=== PATIENT | male | born 1965 | race Caucasian/White ===

== ENCOUNTER 2018-08-05 00:44 | Inpatient (IN) | payer OTHER ==
[~2018-08-05] VITALS: Ht 180.3 cm; Wt 89.8 kg
[~2018-08-05 00:44] MED LIST: METH36TA PO
[2018-08-05] MEDS ORDERED: PHENAZOPYRIDINE 200 MG TABLET ONE (01:19)
[2018-08-05] MEDS ORDERED: IBUPROFEN 200 MG TABLET ONE (01:19)
[2018-08-05] MEDS ORDERED: PHENAZOPYRIDINE 200 MG TABLET PO ONE (01:30)
[2018-08-05] MEDS ORDERED: IBUPROFEN 200 MG TABLET PO ONE (01:30)
[2018-08-05 02:01] LABS: MEAN CORPUSCULAR HEMOGLOBIN 31.5 pg (27.5-34.5); MEAN CORPUSCULAR HGB CONC 34.1 g/dL (33.2-36.2); MEAN CORPUSCULAR VOLUME 92.4 fL (81-97); MEAN PLATELET VOLUME 8.8 fL (7.4-10.4); PLATELET COUNT 208 x10^3/uL (130-400); RED BLOOD COUNT 4.66 x10^6/uL (4.38-5.82); RED CELL DISTRIBUTION WIDTH 13.5 % (9.4-14.8)
[2018-08-05 02:14] LABS: ANION GAP 11 mmol/L (5-15); CALCIUM 8.8 mg/dL (8.5-10.1); CHLORIDE 101 mmol/L (98-107); CREATININE 1.39 mg/dL (0.7-1.3)
[2018-08-05 02:49] LABS: MICROSCOPIC AUTO
[2018-08-05 02:50] LABS: CULTURE INDICATED? YES
[2018-08-05 02:57] LABS: MD YES
[2018-08-05 03:00] LABS: <RBC MORPHOLOGY> NORMAL; BANDS%(MANUAL) 12 % (0-7); LYMPH#(MANUAL) 1.25 x10^3/uL (1-3.4); LYMPHS% (MANUAL) 5 % (22-44); MONOS% (MANUAL) 4 % (2-9); SEG#(MANUAL) 19.75 x10^3/uL (1.8-6.8); SEGS% (MANUAL) 79 % (42-75)
[2018-08-05] MEDS ORDERED: CEFTRIAXONE PMX 1GM/50ML 50 ML IV SCH (03:00)
[2018-08-05 03:01] LABS: <PLATELET ESTIMATE> ADEQUATE; <PLT MORPHOLOGY> NORMAL PLT MORPH
[2018-08-05] MEDS ORDERED: CEFTRIAXONE PMX 1GM/50ML 50 ML ONE (03:10)
[2018-08-05] MEDS ORDERED: OMNIPAQUE 350 MG/ML, 100ML BOTTLE ONE (03:29)
[2018-08-05] MEDS ORDERED: SODIUM CHLORIDE 0.9% 1,000ML IVBOLUS ONE (03:30)
[2018-08-05] MEDS ORDERED: CIPROFLOXACIN/PMX 400MG/200ML 200 ML IV ONE (05:00)
[2018-08-05] MEDS ORDERED: METRONIDAZOLE PMX 500MG/100ML 100 ML IV ONE (05:00)
[2018-08-05] MEDS ORDERED: METRONIDAZOLE PMX 500MG/100ML 100 ML ONE (05:04)
[2018-08-05] MEDS ORDERED: CIPROFLOXACIN/PMX 400MG/200ML 200 ML ONE (05:04)
[2018-08-05] MEDS ORDERED: LABETALOL 5MG/ML, 20ML IVPush PRN (05:30)
[2018-08-05] MEDS ORDERED: ONDANSETRON 2MG/ML, 2ML IVPush PRN (05:30)
[2018-08-05] MEDS ORDERED: ONDANSETRON ODT 4 MG PO PRN (05:30)
[2018-08-05] MEDS ORDERED: KETOROLAC 30 MG/1 ML IV PRN (05:30)
[2018-08-05] MEDS ORDERED: CEFTRIAXONE PMX 1GM/50ML 50 ML IV ONE (05:30)
[2018-08-05] MEDS ORDERED: hydrALAzine 20 MG/ML, 1ML IVPush PRN (05:30)
[2018-08-05] MEDS ORDERED: DOCUSATE 100 MG CAPSULE PO PRN (05:30)
[2018-08-05 05:37] VITALS: BP 112/77
[2018-08-05] MEDS: SODIUM CHLORIDE 0.9% 1,000 ML IV SCH ×2 (06:19→16:54)
[2018-08-05 06:47] LABS: HEMOGLOBIN A1C 5.5 % (4.2-6.3)
[2018-08-05 06:51] LABS: FREE T4 (FREE THYROXINE) 1.17 ng/dL (0.76-1.46); THYROID STIMULATING HORMONE 0.601 mIU/L (0.358-3.740)
[2018-08-05 07:43] VITALS: BP 166/95
[2018-08-05] MEDS: HEPARIN 5,000 UNITS/ML, 1ML SQ SCH ×3 (08:00→20:07)
[2018-08-05] MEDS: METRONIDAZOLE PMX 500MG/100ML 100 ML IV SCH ×2 (08:20→16:55)
[2018-08-05] MEDS ORDERED: MAGNESIUM SULFATE PMX 2GM/50ML 50 ML IV ONE (09:00)
[2018-08-05 09:34] LABS: CLOSTRIDIUM DIFFICILE ANTIGEN NEGATIVE; CLOSTRIDIUM DIFFICILE TOXIN NEGATIVE (Negative)
[2018-08-05] MEDS: IBUPROFEN 200 MG TABLET PO PRN ×2 (10:03→15:37)
[2018-08-05 14:00] VITALS: BP 119/81
[2018-08-05] MEDS: PHENAZOPYRIDINE 100 MG TABLET PO PRN (15:42)
[2018-08-05] MEDS: ACETAMINOPHEN 325 MG TABLET PO PRN ×2 (17:00→21:50)
[2018-08-05 19:58] VITALS: BP 121/76
[2018-08-06 00:56] VITALS: BP 119/81
[2018-08-06] MEDS: METRONIDAZOLE PMX 500MG/100ML 100 ML IV SCH ×3 (01:07→16:45)
[2018-08-06] MEDS: SODIUM CHLORIDE 0.9% 1,000 ML IV SCH (01:07)
[2018-08-06] MEDS: ACETAMINOPHEN 325 MG TABLET PO PRN ×6 (02:20→22:39)
[2018-08-06 04:43] LABS: ALANINE AMINOTRANSFERASE 38 U/L (12-78); ALBUMIN 2.5 g/dL (3.4-5.0); ANION GAP 6 mmol/L (5-15); CALCIUM 7.9 mg/dL (8.5-10.1); CHLORIDE 108 mmol/L (98-107); CHOLESTEROL, TOTAL 130 mg/dL (140-239); CREATININE 1.04 mg/dL (0.7-1.3); TRIGLYCERIDES 123 mg/dL (50-200); VLDL CHOLESTEROL 25 mg/dL (0-25)
[2018-08-06 04:45] LABS: ALKALINE PHOSPHATASE 95 U/L (45-117); BILIRUBIN,TOTAL 1.1 mg/dL (0.2-1.0); CHOL/HDL RATIO 4.6; HDL CHOL % 22 % (26-37); HDL CHOLESTEROL (DIRECT) 28 mg/dL (40-60); LDL CHOLESTEROL,CALCULATED 77 mg/dL (54-169); LDL/HDL RATIO 2.8 (0.5-3.0); MEAN CORPUSCULAR HEMOGLOBIN 31.6 pg (27.5-34.5); MEAN CORPUSCULAR HGB CONC 34.3 g/dL (33.2-36.2); MEAN CORPUSCULAR VOLUME 92.3 fL (81-97); MEAN PLATELET VOLUME 8.4 fL (7.4-10.4); PLATELET COUNT 132 x10^3/uL (130-400); RED BLOOD COUNT 4.04 x10^6/uL (4.38-5.82); RED CELL DISTRIBUTION WIDTH 13.6 % (9.4-14.8); TOTAL PROTEIN 5.9 g/dL (6.4-8.2)
[2018-08-06 05:45] LABS: BASOPHILS # (AUTO) 0.01 x10^3/uL (0-0.1); BASOPHILS % (AUTO) 0 % (0-1); EOSINOPHILS % (AUTO) 0 % (1-7); LYMPHOCYTES # (AUTO) 0.31 x10^3/uL (1-3.4); LYMPHOCYTES % (AUTO) 4 % (22-44); MD SCAN; MONOCYTES # (AUTO) 0.31 x10^3/uL (0.2-0.8); MONOCYTES % (AUTO) 4 % (2-9); NEUTROPHILS # (AUTO) 8.36 x10^3/uL (1.8-6.8); NEUTROPHILS % (AUTO) 93 % (42-75)
[2018-08-06] MEDS: CEFTRIAXONE PMX 2GM/50ML 50 ML IVPB SCH (06:16)
[2018-08-06 07:54] VITALS: BP 116/72
[2018-08-06] MEDS: HEPARIN 5,000 UNITS/ML, 1ML SQ SCH ×3 (08:00→20:37)
[2018-08-06] MEDS: CALCIUM CARBONATE 500 MG TABLET PO SCH ×2 (10:10→20:37)
[2018-08-06 13:20] VITALS: BP 130/81
[2018-08-06] MEDS: IBUPROFEN 200 MG TABLET PO PRN ×2 (13:24→20:37)
[2018-08-06 20:07] VITALS: BP 125/83
[2018-08-07 01:10] VITALS: BP 136/85
[2018-08-07] MEDS: METRONIDAZOLE PMX 500MG/100ML 100 ML IV SCH ×3 (01:15→17:08)
[2018-08-07] MEDS: IBUPROFEN 200 MG TABLET PO PRN ×2 (02:36→20:45)
[2018-08-07] MEDS: ACETAMINOPHEN 325 MG TABLET PO PRN (03:54)
[2018-08-07 04:34] LABS: MEAN CORPUSCULAR HEMOGLOBIN 31.6 pg (27.5-34.5); MEAN CORPUSCULAR HGB CONC 34.2 g/dL (33.2-36.2); MEAN CORPUSCULAR VOLUME 92.3 fL (81-97); MEAN PLATELET VOLUME 9.2 fL (7.4-10.4); PLATELET COUNT 131 x10^3/uL (130-400); RED BLOOD COUNT 4.15 x10^6/uL (4.38-5.82); RED CELL DISTRIBUTION WIDTH 13.4 % (9.4-14.8)
[2018-08-07 04:48] LABS: ANION GAP 5 mmol/L (5-15); CALCIUM 8.3 mg/dL (8.5-10.1); CHLORIDE 108 mmol/L (98-107)
[2018-08-07 04:49] LABS: MD YES
[2018-08-07 04:50] LABS: CREATININE 0.88 mg/dL (0.7-1.3)
[2018-08-07 04:53] LABS: <PLATELET ESTIMATE> ADEQUATE; <PLT MORPHOLOGY> NORMAL PLT MORPH; <RBC MORPHOLOGY> NORMAL; BAND#(MANUAL) 0.77 x10^3/uL; BANDS%(MANUAL) 17 % (0-7); BASOS#(MANUAL) 0.05 x10^3/uL (0-0.1); BASOS% (MANUAL) 1 % (0-1); LYMPH#(MANUAL) 0.18 x10^3/uL (1-3.4); LYMPHS% (MANUAL) 4 % (22-44); MONOS#(MANUAL) 0.09 x10^3/uL (0.3-2.7); MONOS% (MANUAL) 2 % (2-9); REACTIVE LYMPHS # (MANUAL) 0.05 x10^3/uL (0-0); REACTIVE LYMPHS % (MANUAL) 1 % (0-0); SEG#(MANUAL) 3.38 x10^3/uL (1.8-6.8); SEGS% (MANUAL) 75 % (42-75)
[2018-08-07] MEDS: CEFTRIAXONE PMX 2GM/50ML 50 ML IVPB SCH (05:53)
[2018-08-07 07:31] VITALS: BP 114/74
[2018-08-07] MEDS: HEPARIN 5,000 UNITS/ML, 1ML SQ SCH ×2 (08:00→16:00)
[2018-08-07] MEDS: CALCIUM CARBONATE 500 MG TABLET PO SCH ×2 (08:13→20:45)
[2018-08-07] MEDS ORDERED: MAALOX/HYOSCYAMINE/LIDOCAINE 45 ML BTL PO ONE ×2 (09:00→12:00)
[2018-08-07] MEDS ORDERED: FAMOTIDINE 20 MG TABLET PO PRN (09:00)
[2018-08-07 12:14] VITALS: BP 139/91
[2018-08-07] MEDS: NEUTRA PHOS K 250 MG TABLET PO SCH ×2 (17:18→20:45)
[2018-08-07 19:49] VITALS: BP 124/73
[2018-08-07] MEDS: PHENAZOPYRIDINE 100 MG TABLET PO PRN (20:45)
[2018-08-08 00:40] VITALS: BP 113/68
[2018-08-08] MEDS: METRONIDAZOLE PMX 500MG/100ML 100 ML IV SCH ×3 (01:03→16:49)
[2018-08-08 05:38] LABS: CHLORIDE 109 mmol/L (98-107)
[2018-08-08 05:57] LABS: MEAN CORPUSCULAR HEMOGLOBIN 31.4 pg (27.5-34.5); MEAN CORPUSCULAR HGB CONC 33.9 g/dL (33.2-36.2); MEAN CORPUSCULAR VOLUME 92.5 fL (81-97); MEAN PLATELET VOLUME 9.7 fL (7.4-10.4); PLATELET COUNT 149 x10^3/uL (130-400); RED BLOOD COUNT 3.91 x10^6/uL (4.38-5.82); RED CELL DISTRIBUTION WIDTH 13.7 % (9.4-14.8)
[2018-08-08 06:00] LABS: ANION GAP 11 mmol/L (5-15); CALCIUM 7.8 mg/dL (8.5-10.1); CREATININE 0.88 mg/dL (0.7-1.3)
[2018-08-08] MEDS: CEFTRIAXONE PMX 2GM/50ML 50 ML IVPB SCH (06:16)
[2018-08-08 06:52] LABS: MD YES
[2018-08-08 06:58] LABS: <RBC MORPHOLOGY> NORMAL; BAND#(MANUAL) 0.91 x10^3/uL; BANDS%(MANUAL) 13 % (0-7); BASOS#(MANUAL) 0.14 x10^3/uL (0-0.1); BASOS% (MANUAL) 2 % (0-1); LYMPH#(MANUAL) 1.05 x10^3/uL (1-3.4); LYMPHS% (MANUAL) 15 % (22-44); MONOS#(MANUAL) 1.12 x10^3/uL (0.3-2.7); MONOS% (MANUAL) 16 % (2-9); SEG#(MANUAL) 3.78 x10^3/uL (1.8-6.8); SEGS% (MANUAL) 54 % (42-75)
[2018-08-08 06:59] LABS: <PLATELET ESTIMATE> ADEQUATE; <PLT MORPHOLOGY> NORMAL PLT MORPH
[2018-08-08 07:50] VITALS: BP 125/76
[2018-08-08] MEDS: HEPARIN 5,000 UNITS/ML, 1ML SQ SCH ×3 (08:00→16:00)
[2018-08-08] MEDS ORDERED: OMNIPAQUE 350 MG/ML, 100ML BOTTLE ONE (08:12)
[2018-08-08] MEDS: CALCIUM CARBONATE 500 MG TABLET PO SCH ×2 (09:08→20:13)
[2018-08-08] MEDS: NEUTRA PHOS K 250 MG TABLET PO SCH ×3 (09:08→20:13)
[2018-08-08 13:31] VITALS: BP 127/78
[2018-08-08] MEDS: ACETAMINOPHEN 325 MG TABLET PO PRN (17:11)
[2018-08-08 20:27] VITALS: BP 132/84
[2018-08-09] MEDS: HEPARIN 5,000 UNITS/ML, 1ML SQ SCH
[2018-08-09] MEDS: METRONIDAZOLE PMX 500MG/100ML 100 ML IV SCH ×3 (00:59→17:34)
[2018-08-09 01:05] VITALS: BP 147/92
[2018-08-09 04:48] LABS: BASOPHILS # (AUTO) 0.03 x10^3/uL (0-0.1); BASOPHILS % (AUTO) 0 % (0-1); EOSINOPHILS # (AUTO) 0.05 x10^3/uL (0-0.4); EOSINOPHILS % (AUTO) 1 % (1-7); LYMPHOCYTES # (AUTO) 1.56 x10^3/uL (1-3.4); LYMPHOCYTES % (AUTO) 22 % (22-44); MD NO; MEAN CORPUSCULAR HEMOGLOBIN 30.4 pg (27.5-34.5); MEAN CORPUSCULAR HGB CONC 33.3 g/dL (33.2-36.2); MEAN CORPUSCULAR VOLUME 91.3 fL (81-97); MEAN PLATELET VOLUME 9.2 fL (7.4-10.4); MONOCYTES # (AUTO) 0.78 x10^3/uL (0.2-0.8); MONOCYTES % (AUTO) 11 % (2-9); NEUTROPHILS # (AUTO) 4.65 x10^3/uL (1.8-6.8); NEUTROPHILS % (AUTO) 66 % (42-75); PLATELET COUNT 177 x10^3/uL (130-400); RED BLOOD COUNT 4.06 x10^6/uL (4.38-5.82); RED CELL DISTRIBUTION WIDTH 13.9 % (9.4-14.8)
[2018-08-09 04:56] LABS: ANION GAP 6 mmol/L (5-15); CALCIUM 7.8 mg/dL (8.5-10.1); CHLORIDE 110 mmol/L (98-107)
[2018-08-09 04:57] LABS: CREATININE 0.88 mg/dL (0.7-1.3)
[2018-08-09] MEDS: CEFTRIAXONE PMX 2GM/50ML 50 ML IVPB SCH (05:47)
[2018-08-09 06:39] VITALS: BP 131/88
[2018-08-09] MEDS ORDERED: TAMSULOSIN 0.4 MG CAP.ER.24H PO ONE (09:00)
[2018-08-09] MEDS: NEUTRA PHOS K 250 MG TABLET PO SCH ×3 (10:04→19:58)
[2018-08-09] MEDS: CALCIUM CARBONATE 500 MG TABLET PO SCH ×2 (10:04→19:58)
[2018-08-09 12:08] VITALS: BP 128/84
[2018-08-09 19:52] VITALS: BP 133/84
[2018-08-10] MEDS: METRONIDAZOLE PMX 500MG/100ML 100 ML IV SCH ×3 (00:54→18:03)
[2018-08-10 01:38] VITALS: BP 139/88
[2018-08-10] MEDS: CEFTRIAXONE PMX 2GM/50ML 50 ML IVPB SCH (05:20)
[2018-08-10 08:06] VITALS: BP 135/86
[2018-08-10] MEDS: NEUTRA PHOS K 250 MG TABLET PO SCH ×3 (09:57→20:14)
[2018-08-10] MEDS: CALCIUM CARBONATE 500 MG TABLET PO SCH ×2 (09:57→20:14)
[2018-08-10 13:08] VITALS: BP 142/82
[2018-08-10 19:21] VITALS: BP 116/74
[2018-08-11] MEDS: METRONIDAZOLE PMX 500MG/100ML 100 ML IV SCH ×2 (01:07→09:26)
[2018-08-11 02:41] VITALS: BP 140/90
[2018-08-11] MEDS: CEFTRIAXONE PMX 2GM/50ML 50 ML IVPB SCH (06:07)
[2018-08-11] MEDS: NEUTRA PHOS K 250 MG TABLET PO SCH (09:26)
[2018-08-11] MEDS: CALCIUM CARBONATE 500 MG TABLET PO SCH (09:26)
[2018-08-11] MEDS: IBUPROFEN 200 MG TABLET PO PRN (09:30)
[2018-08-11 11:28] VITALS: BP 122/78
[2018-08-11 14:09] VITALS: BP 136/87
[2018-08-11] MEDS ORDERED: CEFT2PIG2 IV (14:31)
[2018-08-11] MEDS ORDERED: METR500T PO (14:31)
[2018-08-11] MEDS ORDERED: CALC-666 PO (14:31)
== END 2018-08-11 15:32 | disposition home or self-care (01) | DRG 871 ==
LOC: ED 02:57 → EDIP 05:23 → 3NW 05:35
PROVIDERS: ADMIT Internal Medicine; ATTEND Internal Medicine
PROC: 02HV33Z Insertion of Infusion Device into Superior Vena Cava, Percutaneous Approach (ICD-10-PCS; principal; 2018-08-10)
PROC: B548ZZA Ultrasonography of Superior Vena Cava, Guidance (ICD-10-PCS; 2018-08-10)
PROC: B5181ZA Fluoroscopy of Superior Vena Cava using Low Osmolar Contrast, Guidance (ICD-10-PCS; 2018-08-10)
DX: A41.51 Sepsis due to Escherichia coli [E. coli] (principal); N17.0 Acute kidney failure with tubular necrosis; E87.2 Acidosis; N39.0 Urinary tract infection, site not specified; K51.30 Ulcerative (chronic) rectosigmoiditis without complications; F17.210 Nicotine dependence, cigarettes, uncomplicated; I10 Essential (primary) hypertension; N41.9 Inflammatory disease of prostate, unspecified; N43.3 Hydrocele, unspecified; N43.41 Spermatocele of epididymis, single; Z87.442 Personal history of urinary calculi; Z90.49 Acquired absence of other specified parts of digestive tract; Z79.899 Other long term (current) drug therapy
CPT/HCPCS: 36415; 36569; 74177; 76870; 76937; 77001; 80048; 80053; 80061; 81001; 83036; 83735; 84100; 84439; 84443; 85025; 87040; 87077; 87086; 87186; 87324; 96365; 99285; G0378; J0696; J0744; J1885; Q9967; C1751; J3475; J7030

== ENCOUNTER 2019-10-01 12:35 | Emergency (ER) | payer BC, OTHER ==
[~2019-10-01] VITALS: Ht 182.9 cm; Wt 86.4 kg
[~2019-10-01 12:35] MED LIST changes: +CALC-666 PO; +CEFT2PIG2 IV; -METH36TA PO; +METH36TA19 PO; +METR500T PO
[2019-10-01 12:43] VITALS: BP 133/94
--- NOTE | 2019-10-01 13:09 | NUR ---
PATIENT RESTING ON GURNEY. RESPIRATIONS EVEN AND UNLABORED. PATIENT IS IN NO ACUTE DISTRESS. CALL LIGHT IN REACH. DENIES FURTHER NEEDS AT THIS TIME.
[2019-10-01 13:30] LABS: BASOPHILS # (AUTO) 0.04 x10^3/uL (0-0.1); BASOPHILS % (AUTO) 1 % (0-1); EOSINOPHILS # (AUTO) 0.07 x10^3/uL (0-0.4); EOSINOPHILS % (AUTO) 1 % (1-7); LYMPHOCYTES # (AUTO) 1.92 x10^3/uL (1-3.4); LYMPHOCYTES % (AUTO) 40 % (22-44); MD NO; MEAN CORPUSCULAR HEMOGLOBIN 31.3 pg (27.5-34.5); MEAN CORPUSCULAR HGB CONC 33.8 g/dL (33.2-36.2); MEAN CORPUSCULAR VOLUME 92.5 fL (81-97); MONOCYTES % (AUTO) 6 % (2-9); NEUTROPHILS # (AUTO) 2.44 x10^3/uL (1.8-6.8); NEUTROPHILS % (AUTO) 51 % (42-75); PLATELET COUNT 243 x10^3/uL (130-400); RED BLOOD COUNT 4.77 x10^6/uL (4.38-5.82); RED CELL DISTRIBUTION WIDTH 13.4 % (9.4-14.8)
[2019-10-01] MEDS ORDERED: VITA1TAB19 PO (13:36)
[2019-10-01 13:41] LABS: ANION GAP 6 mmol/L (5-15); CHLORIDE 110 mmol/L (98-107); CREATININE 0.92 mg/dL (0.7-1.3)
[2019-10-01 14:15] LABS: MICROSCOPIC NOT IND
[2019-10-01 14:19] LABS: CULTURE INDICATED? NO
[2019-10-01] MEDS ORDERED: CIPROFLOXACIN 500 MG TABLET ONE (15:18)
[2019-10-01] MEDS ORDERED: CIPROFLOXACIN 500 MG TABLET PO ONE (15:30)
--- NOTE | 2019-10-01 16:37 | NUR ---
Patient given discharge instructions and they have confirmed that they understand the instructions. Patient ambulatory with steady gait.
== END 2019-10-01 16:38 | disposition home or self-care (01) ==
LOC: ED 14:33
DX: N45.1 Epididymitis (principal); I10 Essential (primary) hypertension; E78.5 Hyperlipidemia, unspecified
CPT/HCPCS: 36415; 76870; 80048; 81003; 85025; 99284

== ENCOUNTER 2020-08-31 15:33 | Emergency (ER) | payer BC ==
[~2020-08-31] VITALS: Ht 182.9 cm; Wt 89.0 kg
[~2020-08-31 15:33] MED LIST changes: -CALC-666 PO; +CALC500T14 PO; +VITA1TAB19 PO
[2020-08-31 16:31] LABS: BASOPHILS % (AUTO) 1 % (0-1); EOSINOPHILS % (AUTO) 2 % (1-7); LYMPHOCYTES % (AUTO) 32 % (22-44); MEAN CORPUSCULAR HEMOGLOBIN 31.4 pg (27.5-34.5); MEAN CORPUSCULAR HGB CONC 33.2 g/dL (33.2-36.2); MEAN PLATELET VOLUME 8.1 fL (7.4-10.4); MONOCYTES % (AUTO) 7 % (2-9); NEUTROPHILS % (AUTO) 59 % (42-75); PLATELET COUNT 235 x10^3/uL (130-400); RED CELL DISTRIBUTION WIDTH 13.2 % (9.4-14.8)
[2020-08-31 16:33] LABS: MD NO
--- NOTE | 2020-08-31 16:39 | NUR ---
PT AMBULATED TO RESTROOM WITH STEADY GAIT TO PROVIDE URINE SAMPLE. UA COLLECTED AND SENT TO LAB.
[2020-08-31 16:40] LABS: ALBUMIN 4.1 g/dL (3.4-5.0); ANION GAP 3 mmol/L (5-15); CHLORIDE 108 mmol/L (98-107)
[2020-08-31 16:43] LABS: ALANINE AMINOTRANSFERASE 38 U/L (12-78); ALKALINE PHOSPHATASE 70 U/L (45-117); BILIRUBIN,TOTAL 1.1 mg/dL (0.2-1.0); CREATININE 0.92 mg/dL (0.7-1.3); TOTAL PROTEIN 7.3 g/dL (6.4-8.2)
[2020-08-31 17:17] LABS: MICROSCOPIC INDICATED
--- NOTE | 2020-08-31 17:42 | NUR ---
ALL RESULTS ARE BACK AT THIS TIME. CHART UP FOR RECEK.
[2020-08-31 17:47] VITALS: BP 133/86
== END 2020-08-31 18:12 | disposition home or self-care (01) ==
LOC: ED 18:00
DX: N20.0 Calculus of kidney (principal); N23 Unspecified renal colic; R19.7 Diarrhea, unspecified; I10 Essential (primary) hypertension; E78.5 Hyperlipidemia, unspecified; Z90.49 Acquired absence of other specified parts of digestive tract
CPT/HCPCS: 36415; 74176; 80053; 81001; 85025; 99284